=== PATIENT | male | born 1960 | race Caucasian/White ===

== ENCOUNTER → 2016-07-02 | Outpatient (CLI) | payer OTHER ==
[~2016-07-02] MED LIST: AMLO-114 PO; ATOR10TA82 PO; PANT40TA PO; TRIA37.5 PO
[2016-07-02 12:17] LABS: BASO % 0.4 %; BASO ABS # 0.03 K/uL (0-0.2); COMPLETE YES; HEMATOCRIT 43.9 % (42-52); IG% 0.1 %; LYMPH % 24.2 %; LYMPH ABS # 1.74 K/uL (1.2-3.4); MEAN CELL VOLUME 85.4 fL (80-100); MEAN CORPUSCULAR HEMOGLOBIN 29.2 pg (25-34); MEAN CORPUSCULAR HGB CONC 34.2 g/dl (32-36); MEAN PLATELET VOLUME 10.8 fL (7.4-10.4); MONO % 6.8 %; NEUT % 67.5 %; PLATELET COUNT 263 K/uL (130-400); RED BLOOD COUNT 5.14 M/uL (4.7-6.1); WHITE BLOOD COUNT 7.18 K/uL (4.8-10.8)
[2016-07-02 13:00] LABS: CALCIUM 9.9 mg/dl (8.5-10.1)
[2016-07-02 13:01] LABS: ALT/SGPT 23 U/L (12-78); AST/SGOT 14 U/L (15-37); BLOOD UREA NITROGEN 9 mg/dl (7-18); BUN/CREATININE RATIO 7.1 (10-20); CARBON DIOXIDE 30 mmol/L (21-32); CHLORIDE 105 mmol/L (98-107); CHOLESTEROL 135 mg/dl (0-200); GLUCOSE 107 mg/dl (70-99); POTASSIUM 3.3 mmol/L (3.5-5.1); SODIUM 142 mmol/L (136-145); TRIGLYCERIDES 118 mg/dl (0-150); VERY LOW DENSITY LIPOPROT CALC 24 mg/dl
[2016-07-02 13:10] LABS: ALB/GLOB RATIO 1.3 (0.9-2); ALKALINE PHOSPHATASE 69 U/L (45-117); CHOLESTEROL/HDL RATIO 3.1; HDL CHOLESTEROL 43 mg/dl; LDL CHOLESTEROL CALCULATED 68 mg/dl
== END | disposition home or self-care (01) ==
LOC: C.LABPVFM 09:14
PROVIDERS: ATTEND Neuromusculoskeletal Medicine & OMM
DX: Z00.00 Encounter for general adult medical examination without abnormal findings (principal)

== ENCOUNTER → 2016-09-02 | Outpatient (CLI) | payer OTHER ==
[~2016-09-02] MED LIST changes: -ATOR10TA82 PO; +ATOR10TA88 PO
--- NOTE | 2016-09-02 16:54 | DIAGNOSTIC IMAGING REPORT ---
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 TECHNIQUE: Frontal, lateral, and bilateral oblique views of the cervical spine were obtained as well as open mouth odontoid view. COMPARISON: None. FINDINGS: Slight reversal of normal cervical lordosis with mild kyphosis. Vertebral body heights and intervertebral disc spaces preserved. No osseous neural foraminal narrowing. 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 No acute fracture or subluxation. No prevertebral soft tissue swelling. Normal atlantoaxial articulation. Lung apices clear. IMPRESSION: 1. No significant osseous neural foraminal narrowing. 2. No acute osseous injury. 3. Mild kyphosis. Electronically signed by: Rigo Price M.D. 09/02/2016 4:53 PM Dictated Date/Time: 09/02/2016 4:49 PM
== END | disposition home or self-care (01) ==
LOC: C.RADPV 16:09
PROVIDERS: ATTEND Nurse Practitioner
DX: M99.03 Segmental and somatic dysfunction of lumbar region (principal)

== ENCOUNTER → 2017-09-08 | Outpatient (CLI) | payer OTHER ==
[~2017-09-08] MED LIST changes: -AMLO-114 PO; +AMLO10TA3 PO; +ATOR10TA82 PO; -ATOR10TA88 PO
== END | disposition home or self-care (01) ==
LOC: C.PATHSPEC 13:22
PROVIDERS: ATTEND Family Medicine
DX: Z01.89 Encounter for other specified special examinations (principal)